=== PATIENT | female | born 1975 | race Caucasian/White ===

== ENCOUNTER 2017-01-22 17:58 | Emergency (ER) | payer OTHER ==
[~2017-01-22 17:58] MED LIST: IMITREX5 MG PO
[2017-01-22 22:40] VITALS: BP 104/84
== END 2017-01-22 22:40 | disposition home or self-care (01) ==
LOC: ED 17:58
DX: R10.13 Epigastric pain (principal); R06.02 Shortness of breath; Z87.442 Personal history of urinary calculi
CPT/HCPCS: Q0092